=== PATIENT | female | born 1990 | race Caucasian/White ===

== ENCOUNTER 2024-01-24 18:20 | Emergency (ER) | payer SELFPAY ==
--- NOTE | ~2024-01-24 | XR_ITS ---
XR foot RT min 3V DATE: 01/24/2024 18:51 INDICATION: Fall one week ago TECHNIQUE: 4 views COMPARISON: None FINDINGS: No fracture or dislocation, periosteal reaction or bone destruction. IMPRESSION: Negative Reviewed, dictated and finalized at location A. IMPRESSION: Negative
--- NOTE | 2024-01-24 18:24 | ED.GENADULT ---
HPI - General Adult General Chief complaint: Extremity Injury, Lower Stated complaint: Injured Right Foot Time Seen by Provider: 01/24/24 18:22 Source: patient Mode of arrival: ambulatory Limitations: no limitations History of Present Illness HPI narrative: 33-year-old female patient presents to the [facility] with complaints of right foot pain x1 week. Patient states about a week ago she was walking down stairs holding some laundry baskets and tripped and fell down a couple of steps. Patient states that it was swollen, bruised after the fall but states that a family member of hers is a nurse and told her to just elevate it, ice it and take Tylenol and ibuprofen. Patient states she has been doing it for a week and feels like the foot pain is getting worse and states that now she can barely even apply any pressure or walk on it at all. Related Data Home Medications Medication Instructions Recorded Confirmed cholecalciferol (vitamin D3) 25 01/24/24 mcg (1,000 unit) tablet hydroxyzine pamoate 25 mg capsule mg 01/24/24 medroxyprogesterone 10 mg tablet mg 01/24/24 ondansetron 4 mg disintegrating mg 01/24/24 tablet sertraline 25 mg tablet mg 01/24/24 sumatriptan succinate 100 mg tablet mg PO 01/24/24 Review of Systems Review of Systems: CONSTITUTIONAL: Denies fever, chills, or sweats. EYES: Denies visual changes, redness, or discharge. ENT: Denies rhinorrhea, congestion, sore throat, or otalgia. CARDIOVASCULAR: Denies chest pain, palpitations, or edema. RESPIRATORY: Denies cough or dyspnea. GASTROINTESTINAL: Denies abdominal pain, nausea, vomiting, or diarrhea. GENITOURINARY: Denies dysuria or hematuria. SKIN: Denies rash or itching. MUSCULOSKELETAL: Denies back pain, joint pain, or myalgia. Positive right foot pain x1 week NEUROLOGIC: Denies headache, numbness, or weakness. PSYCHIATRIC: Denies anxiety or depression. PMFSH Comments At the time of my signature I agree with nursing past medical history, surgical, social, and family history. There is no relevant family history pertinent to the presenting complaint. Exam Narrative: GENERAL: Well-appearing, well-nourished, and in no acute distress. HEAD: Normocephalic, atraumatic. EYES: PERRLA and EOMI. ENT: Nares clear, no rhinorrhea or epistaxis. Mucous membranes moist. NECK: Supple. No lymphadenopathy CHEST: Clear to auscultation. No respiratory distress. HEART: Regular rate and rhythm. No murmur heard. Normal peripheral pulses. ABDOMEN: Soft, nontender, nondistended, normal active bowel sounds. EXTREMITIES: Patient unable to bear weight and ambulate without pain. No surface trauma, ecchymosis, erythema, lesions, ulcers or break in skin integrity. slight swelling noted to the lateral side of the right foot. The R foot is without obvious asymmetry or deformity when compared to the L foot. No bony step-off, tender to palpation over the Fifth metatarsal area, no pain over themidfoot or hindfoot or sole. decreased plantar/dorsiflexion, inversion/eversion. Distal motor and neurovascular status are intact SKIN: Warm, dry, no rash. NEURO: No focal deficits. Alert and oriented x3. Course Course Level of Care: Express Care Visit Reevaluation(s) Reevaluation #1: re-evaluated patient notified her that her x-ray is negative for any acute fracture. Discussed with her I will go ahead and refer her to Ortho for follow-up and she possibly may need physical therapy and MRI. Discussed with patient continue her treatment of [id number] Tylenol, ibuprofen, icing and elevating it we will Kenn wrap her ankle today and fit her for some crutches. Date: 01/24/24 Time: 19:12 Vital Signs Vital signs: Vital Signs Temperature 36.5 C 01/24/24 18:32 Pulse Rate 93 01/24/24 18:32 Respiratory Rate 16 01/24/24 18:32 Blood Pressure 118/81 01/24/24 18:32 Pulse Oximetry 98 01/24/24 18:32 Temperature 36.5 C 01/24/24 18:32 Pulse Rate 93 01/24/24 18:32 Respiratory Rate 16 01/24/24 18:32 Blood Pressure 118/81 01/24/24 18:32 Pulse Oximetry 98 01/24/24 18:32 Vital signs reviewed. Medical Decision Making MDM Narrative Medical decision making narrative: plan of care for patient is to x-ray the right foot to assess for any underlying fracture that could be causing worsening pain. I will reassess patient once this has resulted. Differential Diagnosis Differential Diagnosis: Differential diagnosis: Foot fracture, crush injury, compartment syndrome, contusion, sprain, tendinitis,lisfranc sprain or fracture, avulsion fracture, grown toenail, diabetic ulcer. Vital Signs Vital Signs: Vital Signs Temperature 36.5 C 01/24/24 18:32 Pulse Rate 93 01/24/24 18:32 Respiratory Rate 16 01/24/24 18:32 Blood Pressure 118/81 01/24/24 18:32 Pulse Oximetry 98 01/24/24 18:32 Temperature 36.5 C 01/24/24 18:32 Pulse Rate 93 01/24/24 18:32 Respiratory Rate 16 01/24/24 18:32 Blood Pressure 118/81 01/24/24 18:32 Pulse Oximetry 98 01/24/24 18:32 Imaging Data Radiologist's impression: [facility] [address] [place] [address] XRay Report Signed Patient: Traci Higuera : 1990 MR#: [id number] Age: 33 Acct:[id number] Loc: [facility] ADM Date: 01/24/24Attending Dr: Ordering Physician: Taylor Lima BEST WORKER Date of Service: 01/24/24 Procedure(s): XR foot RT min 3V Accession Number(s): [id number] cc: AWNING FINISHER PHYSICIAN; Taylor Lima BEST WORKER~ XR foot RT min 3V DATE: 01/24/2024 18:51 INDICATION: Fall one week ago TECHNIQUE: 4 views COMPARISON: None FINDINGS: No fracture or dislocation, periosteal reaction or bone destruction. IMPRESSION: Negative Reviewed, dictated and finalized at location A. Dictated By: Sanford Fisher MD 01/24/24 1859 Signed By: <Electronically signed by Sanford Fisher MD in OV> Critical Care Time Critical Care Time Critical Care Time: No Discharge Plan Discharge Clinical Impression: Moderate right ankle sprain Qualifiers: Encounter type: initial encounter Qualified Code(s): S93.401A - Sprain of unspecified ligament of right ankle, initial encounter Patient Disposition: Home, Self-Care Condition: Stable Instructions: Antibiotic Form, Ankle Sprain (ED) Additional Instructions: Avoid weight bearing until the pain subsides. Ice to the area 20-30 minutes 4-6 times a day Elevate above heart Elastic wrap or orthopedic splint as directed for comfort for the next 5-7 days Crutches as directed if needed Tylenol for lesser pain Ibuprofen regularly for the next 2-3 days for the inflammation Follow up with your primary care provider if the condition is not improving within 1 week or sooner if the Condition worsens with numbness, tingling, decrease sensation with weakness to seek ER. Prescriptions: No Action medroxyprogesterone 10 mg tablet sumatriptan succinate 100 mg tablet PO sertraline 25 mg tablet ondansetron 4 mg tablet,disintegrating hydroxyzine pamoate 25 mg capsule cholecalciferol (vitamin D3) 25 mcg (1,000 unit) tablet Follow-up/Referrals: Jonathan French MD [Physician] - UNKNOWN,DOCTOR [Non-Staff] - Stand Alone Forms: Work/School Release IP Time of Disposition: 19:05
[2024-01-24 18:32] VITALS: BP 118/81; PULSE 93; RESP 16; TEMP 36.5; O2SAT 98
== END 2024-01-24 19:14 | disposition home or self-care (01) ==
PROVIDERS: Emergency Provider Nurse Practitioner Family
DX: S93.401A Sprain of unspecified ligament of right ankle, initial encounter (principal); W10.9XXA Fall (on) (from) unspecified stairs and steps, initial encounter
CPT/HCPCS: 73630; 99203; G0463